=== PATIENT | male | born 1975 | race Caucasian/White ===

== ENCOUNTER 2021-06-19 16:05 | Emergency (ER) | payer OTHER, SELFPAY ==
[2021-06-19 16:07] VITALS: BP 168/105; PULSE 102; RESP 18; TEMP 36.8; O2SAT 97; BMI 29.3
--- NOTE | 2021-06-19 16:21 | EKG12_ITS ---
Test Reason : Blood Pressure : / mmHG Vent. Rate : 092 BPM Atrial Rate : 092 BPM P-R Int : 178 ms QRS Dur : 086 ms QT Int : 356 ms P-R-T Axes : 064 060 039 degrees QTc Int : 440 ms Normal sinus rhythm Normal ECG Confirmed by ANGI ESTEVES, SHAY ([id number]), makeup editor RUBIO DUMONT ([id number]) on 06/23/2021 12:35:45 P M Referred By: NAHEED/SIMONE Confirmed By:MANISHA WHITLEY MD
--- NOTE | 2021-06-19 16:36 | EDS_ITS ---
HPI <ALAINA Schwarz - Last Filed: 06/19/21 17:26> History of Present Illness Chief Complaint: Hypertension Narrative Narrative: 45-year-old male with no significant past medical history presents with elevated blood pressure and heart rate. Over the last 3 months he has had episodes where his whole body feels tense and he is anxious. He sometimes has nausea but no vomiting. He has had chest pain with it in the past. No shortness of breath. 3 days ago he saw his primary care doctor as these episodes have been worsening and they checked basic labs and started him on sertraline and hydroxyzine for anxiety. This morning he had a similar tense episode and took hydroxyzine and had improvement. He took a nap and when he woke up he had another episode and felt like his heart was racing so he called EMS. Today he had no chest pain or shortness of breath. He states he thinks it is anxiety but he just wants his heart checked out. Prior similar symptoms: Yes Recent Illness/Hospitalization: No PFSH <ALAINA Schwarz - Last Filed: 06/19/21 17:26> PFS Medical History (Updated 06/19/21 @ 17:23 by ALAINA Schwarz) Anxiety Home Medications hydroxyzine pamoate [Vistaril] 25 - 50 mg PO TID PRN 06/19/21 [History Last Taken Unknown] sertraline 50 mg PO DAILY 06/19/21 [History Last Taken Unknown] Allergy/AdvReac Type Severity Reaction Status Date / Time No Known Allergies Allergy Verified 06/19/21 16:07 Surgical History (Updated 06/19/21 @ 16:21 by Antoinette Lemus) History of facial surgery Social History Smoking Status: Current some day smoker tobacco type: cigarettes ROS <ALAINA Schwarz - Last Filed: 06/19/21 17:26> ROS ED ROS Narrative Constitutional: Negative for fever, chills, malaise. Eyes: Negative for visual change. ENT: Negative for sore throat, ear pain, rhinorrhea. CVS: Positive for palpitations. Negative for chest pain, syncope. Respiratory: Negative for shortness of breath, cough, orthopnea. GI: Negative for abdominal pain, nausea, vomiting, diarrhea, constipation, melena, hematochezia. : Negative for dysuria, hematuria or frequency. Neuro: Negative for headache, motor/sensory dysfunction. Skin: Negative for rash, abscess, or wound. Musc: Negative for joint pain, swelling, trauma. Heme: Negative for easy bruising, bleeding, lymphadenopathy. EXAM <ALAINA Schwarz - Last Filed: 06/19/21 17:26> Physical Exam Narrative Exam Narrative: CONST: Patient sitting in no acute distress. EYES: Normal inspection. NECK: Normal inspection, no JVD. RESP: No respiratory distress, CTAB. CVS: Slightly tachycardic with regular rhythm, no murmur, no gallop. ABD: Soft and nontender, no guarding or rebound, nondistended, no hepatosplenomegaly. Back: Normal inspection. SKIN: Color normal, no rash, warm, dry, intact. EXTREMITIES: Normal appearance, no pedal edema. NEURO: Oriented x4. PSYCH: Normal affect. Const Vital Signs: 06/19/21 16:07 06/19/21 16:16 06/19/21 17:29 Temperature 98.2 F Temperature Source Oral Pulse Rate 102 H Respiratory Rate 18 Respiratory Effort Normal Non-Labored Respiratory Pattern Normal Blood Pressure 168/105 H 152/101 H Blood Pressure Mean 126 Pulse Ox 97 Oxygen Delivery Method Room Air <Dr. Berry Downey, - Last Filed: 06/19/21 18:09> Physical Exam Const Vital Signs: 06/19/21 16:07 06/19/21 16:16 06/19/21 17:29 Temperature 98.2 F Temperature Source Oral Pulse Rate 102 H Respiratory Rate 18 Respiratory Effort Normal Non-Labored Respiratory Pattern Normal Blood Pressure 168/105 H 152/101 H Blood Pressure Mean 126 Pulse Ox 97 Oxygen Delivery Method Room Air MDM <ALAINA Schwarz - Last Filed: 06/19/21 17:26> [facility] Narrative Medical decision making narrative: Patient has chronic history of episodes where he gets tense and anxious that sound consistent with anxiety attacks. He recen tly started sertraline and hydroxyzine 3 days ago for the symptoms. He presented today with a similar symptom stating he wanted to make sure his heart was okay. He appears well nontoxic. Vital signs showed BP of 168/105, HR 102, otherwise normal. His medical exam is benign. He does not have any chest pain or shortness of breath. Basic labs show no evidence of endorgan damage. EKG is nonischemic and high-sensitivity troponin is 30. His heart rate improved to the 80s. At this time I do not want to start any medications for her blood pressure as it is likely elevated secondary to his anxiety. We discussed that his SSRI may take several weeks to work and may need dosage adjustments. He is comfortable following up with his family doctor. I also recommended he keep a daily BP log. He was counseled to return for new or worsening symptoms and was discharged in stable condition. Diagnosis 1. Anxiety Lab Data Labs: Laboratory Results - last 24 hr 06/19/21 06/19/21 16:31 16:31 WBC 7.5 RBC 5.02 Hgb 15.1 Hct 44.4 MCV 88.4 MCH 30.1 MCHC 34.0 RDW Std Deviation 38.5 RDW Coeff of Joe 11.9 Plt Count 331 MPV 9.3 Immature Gran % (Auto) 0.300 Neut % (Auto) 68.5 Lymph % (Auto) 22.7 Burnett % (Auto) 7.3 Eos % (Auto) 0.8 Baso % (Auto) 0.4 Absolute Neuts (auto) 5.1 Absolute Lymphs (auto) 1.70 Nucleated RBC % 0 Sodium 139 Potassium 4.1 Chloride 107 Carbon Dioxide 26.0 Anion Gap 6 BUN 20 H Creatinine 1.35 H Estim Creat Clear Calc 74.25 Est GFR (MDRD) Af Amer 73 Est GFR (MDRD) Non-Af 60 BUN/Creatinine Ratio 14.8 Glucose 98 Calcium 9.3 Troponin I High Sens 30 <Dr. Berry Downey, DO - Last Filed: 06/19/21 18:09> [facility] Narrative Medical decision making narrative: Patient was seen with me. I agree with the history and physical examination. Patient presents with chest pain and anxiety that became worse today. Patient noted that his blood pressure was high today as well. Patient states nothing makes his pain better nothing makes it worse. Patient denies any shortness of breath. Patient denies any nausea or vomiting. Patient denies any diaphoresis. Patient denies any lightheadedness. Vital signs are stable except for mildly elevated blood pressure of 168/105. Oral mucosa is pink and moist. Neck is supple. Trachea is midline. There is no JVD or lymphadenopathy. Heart was regular rate and rhythm. Lungs are clear and equal bilaterally. Abdomen is soft. Bowel sounds are normal. There is no tenderness. Cranial nerves II through XII are intact. There are no focal motor or sensory deficits. EKG was obtained. There are no acute ST or T wave changes. CBC was within normal limits. Basic metabolic profile showed a slightly elevated BUN of 20 and a slightly elevated creatinine of 1.35. High-sensitivity troponin was normal. Patient's blood pressure improved to 152/101. Patient feels better on reevalu ation. Patient was advised of his findings. Patient was instructed to follow- up with his primary care physician in 3 to 5 days. Patient understood and was agreeable with the plan. All questions were answered. Lab Data Attestation: I reviewed the patient's lab results. Labs: Laboratory Results - last 24 hr 06/19/21 06/19/21 16:31 16:31 WBC 7.5 RBC 5.02 Hgb 15.1 Hct 44.4 MCV 88.4 MCH 30.1 MCHC 34.0 RDW Std Deviation 38.5 RDW Coeff of Joe 11.9 Plt Count 331 MPV 9.3 Immature Gran % (Auto) 0.300 Neut % (Auto) 68.5 Lymph % (Auto) 22.7 Burnett % (Auto) 7.3 Eos % (Auto) 0.8 Baso % (Auto) 0.4 Absolute Neuts (auto) 5.1 Absolute Lymphs (auto) 1.70 Nucleated RBC % 0 Sodium 139 Potassium 4.1 Chloride 107 Carbon Dioxide 26.0 Anion Gap 6 BUN 20 H Creatinine 1.35 H Estim Creat Clear Calc 74.25 Est GFR (MDRD) Af Amer 73 Est GFR (MDRD) Non-Af 60 BUN/Creatinine Ratio 14.8 Glucose 98 Calcium 9.3 Troponin I High Sens 30 Discharge Plan Triage Chief Complaint: Hypertension Other Complaint: Anxiety ED Provider: Janie Alba Dx/Rx/DC Orders Clinical Impression: Anxiety Instructions: Anxiety Disorders Tx Therapy Prescriptions: No Action sertraline 50 mg Tablet 50 mg PO DAILY RF: 0 hydroxyzine pamoate [Vistaril] 25 mg Capsule 25 - 50 mg PO TID PRN (Reason: Anxiety) RF: 0 Primary Care Provider: Zeyad Lujan Referrals: Zeyad Lujan DO [Primary Care Provider] - Activity Restrictions/Additional Instructions: Today your EKG showed a normal heart rhythm. There is no evidence of heart attack. Your elevated heart rate and blood pressure sound like they were caused by an anxiety attack. You should continue taking the sertraline and hydroxyzine prescribed by your doctor. These can take several weeks to have full effect. Please keep a log of your blood pressure once a day and call your doctor for follow-up appointment. Disposition Disposition: Home, Self Care Discharge Date/Time: 06/19/21 17:56
[2021-06-19 16:40] LABS: Absolute Neutrophil Count 5.1 X10^3/uL (2.0-7.7); Basophil# 0.03 X10^3/uL; Basophil% 0.4 % (0-1); Eosinophil# 0.06 X10^3/uL; Eosinophils% 0.8 % (0-5); Hematocrit 44.4 % (40-54); Hemoglobin 15.1 g/dL (13.0-16.5); Lymphocyte % 22.7 % (19-41); Mean Corpuscular Hgb 30.1 pg (27.0-32.0); Mean Corpuscular Volume 88.4 fL (80-94); Mean Platelet Vol. 9.3 fl (6.2-12.0); Monocyte# 0.55 X10^3/uL; Monocyte% 7.3 % (0-10); NRBC Flagged by Analyzer 0 % (0-5); Neutrophil # 5.14 X10^3/uL (2.7-7.7); Neutrophil % 68.5 % (47-70); Platelet Count 331 K/mm3 (150-450); RBC Distribution Width CV 11.9 % (11.6-14.6); RBC Distribution Width SD 38.5 fl (35.1-43.9); Red Blood Count 5.02 M/mm3 (4.6-6.2); White Blood Count 7.5 K/mm3 (4.4-11.0)
[2021-06-19 17:01] LABS: Anion Gap 6 (5-15); BUN 20 mg/dL (7-18); BUN/Creat Ratio 14.8 RATIO (10-20); Calcium,Total 9.3 mg/dL (8.5-10.1); Chloride 107 mmol/L (98-107); Creatinine, Serum 1.35 mg/dL (0.70-1.30); EST Glomerular Filtration Rate 60 mL/min (>60); Est Glom Filt Rate - Afr Amer 73 mL/min (>60); Estimated Creatinine Clearance 74.25 ml/min; Glucose 98 mg/dL (74-106); Potassium 4.1 mmol/L (3.5-5.1); Sodium Level 139 mmol/L (136-145); Troponin-I HS 30 pg/mL (3.0-78.0)
[2021-06-19 17:29] VITALS: BP 152/101
== END 2021-06-19 17:56 | disposition home or self-care (01) ==
PROVIDERS: Emergency Provider Physician Assistant; PCP Family Medicine; Visit Provider Physician Assistant
DX: F41.9 Anxiety disorder, unspecified (principal); F17.210 Nicotine dependence, cigarettes, uncomplicated; I10 Essential (primary) hypertension
CPT/HCPCS: 80048; 84484; 85025; 93005; 99285; A4216